=== PATIENT | male | born 1950 | race Caucasian/White ===

== ENCOUNTER → 2017-05-28 | Outpatient (CLI) | payer OTHER, MEDICAID | LOC: CIMAGING 14:18 | PROVIDERS: ATTEND Family Medicine | DX: R05 Cough (principal); J98.4 Other disorders of lung | CPT/HCPCS: 71046-PO ==

== ENCOUNTER 2017-07-09 11:44 | Emergency (ER) | payer OTHER, MEDICAID ==
[2017-07-09 11:55] VITALS: BP 117/81; PULSE 77; RESP 18; TEMP 97.7; O2SAT 92
--- NOTE | 2017-07-09 12:04 | EDPHY ---
HPI/HX/ROS/PE/MDM Narrative: CHIEF COMPLAINT: Right pinky injury HPI: The patient is a 67-year-old male who complains of right pinky pain and deformity after accidentally stubbing it on the counter when he tripped in his kitchen. The incident occurred last night. He denies other injury. He has been icing the finger. He denies numbness. REVIEW OF SYSTEMS: Aside from elements discussed in the HPI, a comprehensive 10-point review of systems was reviewed and is negative. PMH: History of prior finger dislocations. SOCIAL HISTORY: Denies drug abuse. PHYSICAL EXAM: General:Patient is alert, in no acute distress. Skin: Normal color. No rash. Warm and dry. Extremities: Left hand unaffected. Right hand: The right pinky is deformed with lateral deviation. Capillary refill is intact. Skin is intact. Neuro: Oriented x3. Normal motor function. Normal sensory function. ED Course: X-ray reveals fracture oblique through the proximal phalanx. No dislocation. Finger placed in splint and patient given referral to hand. He understands that if he fails to follow up for surgery he will likely have a permanently deformed finger. There is no evidence of neurovascular or tendon compromise. - Data Points Imaging Results: Imaging Impressions Finger X-Ray 07/09/17 11:55 Impression: Acute oblique fracture through the mid shaft of the proximal phalanx with slight lateral angulation. Imaging: I viewed and interpreted images myself General Time Seen by Provider: 07/09/17 11:51 Initial Vital Signs: Initial Vital Signs Temperature (C) 36.5 C 07/09/17 11:48 Heart Rate 77 07/09/17 11:48 Respiratory Rate 18 07/09/17 11:48 Blood Pressure 117/81 H 07/09/17 11:48 O2 Sat (%) 92 07/09/17 11:48 O2 Delivery Mode Room Air Allergies/Adverse Reactions: No Known Allergies Allergy (Verified 07/09/17 11:49) Home Medications: Medication Instructions Recorded Xarelto 07/09/17 oxyCODONE/APAP 5/325 [Percocet 1 - 2 tab PO Q4H PRN #10 tab 07/09/17 5/325 (*)] Departure - Departure Disposition: Home, Routine, Self-Care Clinical Impression: Finger fracture Qualifiers: Encounter type: initial encounter Finger: little finger Fracture type: closed Phalanx: proximal Fracture alignment: displaced Laterality: right Qualified Code (s): S62.616A - Displaced fracture of proximal phalanx of right little finger, initial encounter for closed fracture Condition: Good Instructions: Finger Fracture (ED) Additional Instructions: You must follow up with a hand surgeon within 1 week for likely minor surgery to her finger. Failure to follow-up full most likely result in permanent deformity and loss of function of the finger. Use ibuprofen and Tylenol as directed. Use ice pack as directed. Return to the ED for severe pain, numbness or paleness of the finger. Referrals: Nakita Campuzano MD [Primary Care Provider] - As per Instructions Escobar Moody MD [Medical Doctor] - As per Instructions
== END 2017-07-09 12:30 | disposition home or self-care (01) ==
LOC: CED 11:44
DX: S62.616A Displaced fracture of proximal phalanx of right little finger, initial encounter for closed fracture (principal); Z79.01 Long term (current) use of anticoagulants; W22.8XXA Striking against or struck by other objects, initial encounter; Y92.000 Kitchen of unspecified non-institutional (private) residence as the place of occurrence of the external cause
CPT/HCPCS: 73140; 99283; L3925

== ENCOUNTER → 2018-03-16 | Outpatient (CLI) | payer MEDICAID, OTHER | LOC: FIMAGING 15:39 | PROVIDERS: ATTEND Physician Assistant | DX: I82.432 Acute embolism and thrombosis of left popliteal vein (principal); I82.812 Embolism and thrombosis of superficial veins of left lower extremity ==

== ENCOUNTER → 2018-04-28 | Outpatient (CLI) | payer OTHER, MEDICAID | LOC: FIMAGING 13:05 | PROVIDERS: ATTEND Nurse Practitioner | DX: R22.43 Localized swelling, mass and lump, lower limb, bilateral (principal); M79.662 Pain in left lower leg; M79.661 Pain in right lower leg; Z86.718 Personal history of other venous thrombosis and embolism ==

== ENCOUNTER → 2018-05-06 | Outpatient (CLI) | payer OTHER, MEDICAID | LOC: FIMAGING 15:11 | PROVIDERS: ATTEND Internal Medicine Hematology & Oncology | DX: R22.42 Localized swelling, mass and lump, left lower limb (principal); M79.661 Pain in right lower leg ==